=== PATIENT | female | born 1980 | race Caucasian/White ===

== ENCOUNTER → 2019-03-20 | Outpatient (CLI) | payer OTHER ==
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
== END ==
LOC: RAD FS 11:50
PROVIDERS: ATTEND Family Medicine
DX: M79.642 Pain in left hand (principal); M25.532 Pain in left wrist; V89.2XXA Person injured in unspecified motor-vehicle accident, traffic, initial encounter
CPT/HCPCS: 73110; 73130

== ENCOUNTER 2021-02-24 13:14 | Outpatient (CLI) | payer BC ==
[~2021-02-24] VITALS: Ht 162.3 cm; Wt 141.0 kg
[2021-02-24 13:20] VITALS: BP 136/88
[2021-02-24] MEDS ORDERED: diphenhydrAMINE 50 MG/ML INJ (BENADRYL) IV PRN (13:30)
[2021-02-24] MEDS ORDERED: CASIRIVIMAB/IMDEVIMAB 1,200 MG in NS (IVPB) 250 ML IV ONE (13:30)
[2021-02-24] MEDS ORDERED: EPINEPHrine INJECTION 1 MG/ML AMP IM PRN (13:30)
[2021-02-24 14:40] VITALS: BP 111/66
== END 2021-02-24 15:25 ==
LOC: INFUSION 13:14
PROVIDERS: ATTEND Family Medicine
DX: Z23 Encounter for immunization (principal); U07.1 COVID-19